=== PATIENT | female | born 1955 | race American Indian/Alaskan Native ===

== ENCOUNTER 2017-06-20 17:17 | Emergency (ER) | payer OTHER ==
[2017-06-20 17:28] VITALS: BP 160/94; PULSE 77; RESP 18; TEMP 98.4; O2SAT 99
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
--- NOTE | 2017-06-20 20:14 | RAD ---
PROCEDURE: Right Hand Radiographs. HISTORY: injury COMPARISON: None. FINDINGS: BONES: No fracture identified. JOINTS: No dislocation seen. Degenerative changes noted at the 1st IP joint. SOFT TISSUES: Unremarkable OTHER FINDINGS: None. IMPRESSION: No fracture or dislocation identified.
== END 2017-06-20 19:52 | disposition home or self-care (01) ==
LOC: C.ER 17:17
DX: S60.221A Contusion of right hand, initial encounter (principal); S40.011A Contusion of right shoulder, initial encounter; W22.8XXA Striking against or struck by other objects, initial encounter

== ENCOUNTER 2018-07-21 09:34 | Emergency (ER) | payer OTHER ==
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
[2018-07-21 11:51] VITALS: BP 199/100; PULSE 78; RESP 20; TEMP 98.9
[2018-07-21 11:52] VITALS: O2SAT 100
== END 2018-07-21 12:03 | disposition home or self-care (01) ==
LOC: C.ER 09:34
DX: S00.83XA Contusion of other part of head, initial encounter (principal); Y08.89XA Assault by other specified means, initial encounter; Y92.89 Other specified places as the place of occurrence of the external cause; Y99.0 Civilian activity done for income or pay

== ENCOUNTER 2018-07-21 20:36 | Emergency (ER) | payer OTHER ==
[2018-07-21 21:07] VITALS: RESP 16; TEMP 98.3; O2SAT 100
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
[2018-07-21 22:39] VITALS: BP 188/100; PULSE 81
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
== END 2018-07-21 22:38 | disposition home or self-care (01) ==
LOC: C.ER 20:36
DX: S00.83XD Contusion of other part of head, subsequent encounter (principal); Y08.89XD Assault by other specified means, subsequent encounter